=== PATIENT | male | born 2000 | race Caucasian/White ===

== ENCOUNTER 2021-08-23 20:27 | Emergency (ER) | payer OTHER ==
--- OUTSIDE RECORDS SUMMARY | 2021-08-23 20:29 | XMS REPORT | Continuity of Care Document ---
:2000 Author Organization [facility] t Address [address] [place] [address] Care Team Providers Name Role Phone Young_J Attending Clinician Unavailable Young_J Admitting Clinician Unavailable Payers Payer Name Policy Type Policy Number Effective Date Expiration Date S shobha R (PPO) [id number] 2018 00:00:00 Problems This patient has no known problems. Allergies, Adverse Reactions, Alerts This patient has no known allergies or adverse reactions. Medications This patient has no known medications. Procedures This patient has no known procedures. Encounters Start End Encounter Admission Attending Care Care Encounter Source Date/Time Date/Time Type Type Clinicians Facility Department ID 2021-04-10 2021-04-10 Outpatient [facility] [id number] [place] 03:33:00 03:33:00 [facility] 2021-03-06 2021-03-06 Outpatient [facility] [id number] [place] 04:14:00 04:14:00 [facility] 2021-01-30 2021-01-30 Outpatient [facility] [id number] [place] 03:33:00 03:33:00 110[facility] 2021-01-11 2021-01-11 Outpatient [facility]J [facility] [id number] [place] 10:53:00 10:53:00 1018 [facility] Results This patient has no known results.
[2021-08-23] MEDS ORDERED: dexAMETHasone 10 MG/ML VIAL ONE (22:09)
[2021-08-23] MEDS ORDERED: hydrOXYzine HCL 25 MG TAB ONE (22:09)
--- NOTE | 2021-08-23 22:38 | ER ---
Nurse's Notes [facility] Name: Chris Barker Age: 20 yrs Sex: Male : 2000 Arrival Date: 08/23/2021 Time: 20:31 Bed 10 Private MD: Diagnosis: Rash and other nonspecific skin eruption Presentation: 08/23 20:49 Chief complaint: Patient states: I got sunburned on Monday, the sunburn is getting jb4 better but now I am itching on my torso. This has happened before. Coronavirus screen: At this time, the client does not indicate any symptoms associated with coronavirus-19. Ebola Screen: No symptoms or risks identified at this time. Initial Sepsis Screen: Does the patient meet any 2 criteria? No. Patient's initial sepsis screen is negative. Does the patient have a suspected source of infection? No. Patient's initial sepsis screen is negative. Risk Assessment: Do you want to hurt yourself or someone else? Patient reports no desire to harm self or others. Onset of symptoms was August 23, 2021. Transition of care: patient was not received from another setting of care. 20:49 Method Of Arrival: Ambulatory jb4 20:49 Acuity: DAX 5 jb4 Historical: - Allergies: 20:51 No Known Allergies; jb4 - Home Meds: 20:51 trilogy [Active]; pro-air [Active]; jb4 - PMHx: 20:51 Asthma; jb4 - PSHx: 20:51 None; jb4 - Immunization history:: Adult Immunizations up to date. - Social history:: Smoking status: Patient/guardian denies using tobacco, Patient uses alcohol, occasionally. Patient/guardian denies using street drugs. Screenin:55 Abuse screen: Denies threats or abuse. Nutritional screening: No deficits noted. jb4 Tuberculosis screening: No symptoms or risk factors identified. Fall Risk None identified. Assessment: 20:55 General: Appears in no apparent distress. uncomfortable, Behavior is calm, cooperative, jb4 appropriate for age. Pain: Complains of pain in chest Pain does not radiate. Pain currently is 7 out of 10 on a pain scale. Neuro: Level of Consciousness is awake, alert, obeys commands, Oriented to person, place, time, situation. Cardiovascular: Patient's skin is warm and dry. Respiratory: Airway is patent Respiratory effort is even, unlabored, Respiratory pattern is regular, symmetrical. GI: No signs and/or symptoms were reported involving the gastrointestinal system. : No signs and/or symptoms were reported regarding the genitourinary system. EENT: No signs and/or symptoms were reported regarding the EENT system. Derm: Skin is intact, Skin is pink, warm \T\ dry. Rash noted that is itchy, on chest and abdomen. Vital Signs: 20:49 BP 119 / 63; Pulse 87; Resp 16; Temp 99.0(TE); Pulse Ox 99% on R/A; Weight 86.18 kg jb4 (R); Height 6 ft. 0 in. (182.88 cm) (R); Pain 7/10; 20:49 Body Mass Index 25.77 (86.18 kg, 182.88 cm) jb4 ED Course: 20:31 Patient arrived in ED. ja2 20:51 Triage completed. jb4 20:51 Arm band placed on right wrist. 4 20:53 Kirk Herrera PA is PHCP. [facility] 20:53 Chicho Dallas MD is Attending Physician. [facility] 20:55 Patient has correct armband on for positive identification. Bed in low position. Call jb4 light in reach. Side rails up X 1. 22:35 No provider procedures requiring assistance completed. Patient did not have IV access jb4 during this emergency room visit. Administered Medications: 22:05 Drug: Decadron (dexamethasone) 10 mg Route: IM; Site: right gluteus; lp1 22:40 Follow up: Response: No adverse reaction lp1 22:05 Drug: hydrOXYzine 50 mg Route: PO; lp1 22:40 Follow up: Response: No adverse reaction lp1 Medication: 08/24 03:36 VIS not applicable for this client. jb4 Outcome: 08/23 22:37 Discharge ordered by . karen 22:40 Discharged to home ambulatory, with significant other. lp1 22:40 Condition: stable 22:40 Discharge instructions given to patient, Instructed on discharge instructions, follow up and referral plans. medication usage, Demonstrated understanding of instructions, follow-up care, medications, Prescriptions given X 3. 22:41 Patient left the ED. lp1 Signatures: MickaKirk gillis PA PA jmm Pena, Laura, RN RN lp1 Anand Glover RN RN jb4 Brenda Paulson ja2 Corrections: (The following items were deleted from the chart) 08/24 02:39 03:36 General: Appears in no apparent distress. uncomfortable, Behavior is calm, jb4 cooperative, appropriate for age, jb4 :39 03:36 Pain: Complains of pain in chest Pain does not radiate. Pain currently is 7 out jb4 of 10 on a pain scale. jb4 03:36 Neuro: Level of Consciousness is awake, alert, obeys commands, Oriented to jb4 person, place, time, situation, 4 03:36 Cardiovascular: Patient's skin is warm and dry. [place] [id number] 03:36 Respiratory: Airway is patent Respiratory effort is even, unlabored, Respiratory jb4 pattern is regular, symmetrical, 4 : 03:36 GI: No signs and/or symptoms were reported involving the gastrointestinal system. [place] [id number] 03:36 : No signs and/or symptoms were reported regarding the [facility]ourinary system. [facility] EENT: No signs and/or symptoms were reported regarding the EENT system. [place] [id number] :39 03:36 Derm: Skin is intact, Skin is pink, warm \T\ dry. Rash noted that is itchy, on jb4 chest and abdomen [facility] 39 03:36 Abuse screen: Denies threats or abuse. [place] [id number] 03:36 Nutritional screening: No deficits noted. [place] [id number] 03:36 Tuberculosis screening: No symptoms or risk factors identified. [place] [id number] :39 03:36 Fall Risk None identified. [place] [id number]
--- NOTE | 2021-08-23 22:38 | EDPHYS ---
Physician Documentation [facility] Name: Chris Barker Age: 20 yrs Sex: Male : 2000 Arrival Date: 08/23/2021 Time: 20:31 Bed 10 Private MD: ED Physician Chicho Dallas HPI: 08/23 21:28 This 20 yrs old Male presents to ER via Ambulatory with complaints of Skin Problem. jmm 21:28 The patient's rash thought to be caused by Dermatitis. Onset: The symptoms/episode jmm began/occurred gradually, 1 day(s) ago. Associated signs and symptoms:. 20-year-old male with no chronic medical conditions presents emerged department with complaints of pruritus secondary to sunburn which occurred yesterday. Patient states having similar episode previous sunburns.. Historical: - Allergies: 20:51 No Known Allergies; jb4 - Home Meds: 20:51 trilogy [Active]; pro-air [Active]; jb4 - PMHx: 20:51 Asthma; jb4 - PSHx: 20:51 None; jb4 - Immunization history:: Adult Immunizations up to date. - Social history:: Smoking status: Patient/guardian denies using tobacco, Patient uses alcohol, occasionally. Patient/guardian denies using street drugs. ROS: 21:28 Constitutional: Negative for fever, chills, and weight loss, Cardiovascular: Negative jmm for chest pain, palpitations, and edema, Respiratory: Negative for shortness of breath, cough, wheezing, and pleuritic chest pain. 21:28 Skin: Positive for rash. 21:28 All other systems are negative. Exam: 21:28 Constitutional: This is a well developed, well nourished patient who is awake, alert, jmm and in no acute distress. Head/Face: atraumatic. Eyes: EOMI, no conjunctival erythema appreciated ENT: Moist Mucus Membranes Neck: Trachea midline, Supple Chest/axilla: Normal chest wall appearance and motion. Cardiovascular: Regular rate and rhythm. No edema appreciated Respiratory: Normal respirations, no respiratory distress appreciated Abdomen/GI: Non distended, soft Back: Normal ROM 21:28 Skin: erythema noted to the chest. 21:28 Neuro: Orientation: is normal, Mentation: is normal, Memory: is normal. 21:28 Psych: Behavior/mood is pleasant, cooperative. Vital Signs: 20:49 BP 119 / 63; Pulse 87; Resp 16; Temp 99.0(TE); Pulse Ox 99% on R/A; Weight 86.18 kg jb4 (R); Height 6 ft. 0 in. (182.88 cm) (R); Pain 7/10; 20:49 Body Mass Index 25.77 (86.18 kg, 182.88 cm) jb4 MDM: 21:28 Patient medically screened. [facility] 22:35 Data reviewed: vital signs, nurses notes. Counseling: I had a detailed discussion with [facility] the patient and/or guardian regarding: the historical points, exam findings, and any diagnostic results supporting the discharge/admit diagnosis, the need for outpatient follow up, to return to the emergency department if symptoms worsen or persist or if there are any questions or concerns that arise at home. ED course: Patient is alert and non toxic in appearance in the ED. No signs of seps. Patient advised to follow up with pcp and otherwise given strict return precautions. Patient understood and agrees with the plan of care. . Administered Medications: 22:05 Drug: Decadron (dexamethasone) 10 mg Route: IM; Site: right gluteus; lp1 22:40 Follow up: Response: No adverse reaction lp1 22:05 Drug: hydrOXYzine 50 mg Route: PO; lp1 22:40 Follow up: Response: No adverse reaction lp1 Disposition Summary: 08/23/21 22:37 Discharge Ordered Location: Home [facility] Condition: Stable [facility] Diagnosis - Rash and other nonspecific skin eruption [facility] Followup: [facility] - With: Private Physician - When: 2 - 3 days - Reason: Recheck today's complaints, Continuance of care, Re-evaluation by your physician Discharge Instructions: - Discharge Summary Sheet [facility] - Rash, Adult [facility] Forms: - Medication Reconciliation Form [facility] - Thank You Letter [facility] - Antibiotic Education [facility] - Prescription Opioid Use [facility] Prescriptions: - Hydroxyzine HCl 50 mg Oral Tablet - take 1 tablet by ORAL route every 8 hours As needed; 20 tablet; Refills: 0, [facility] Product Selection Permitted - Prednisone 20 mg Oral Tablet - take 3 tablets by ORAL route once daily for 5 days; 15 tablet; Refills: 0, [facility] Product Selection Permitted - Doxycycline Hyclate 100 mg Oral Tablet - take 1 tablet by ORAL route every 12 hours; 20 tablet; Refills: 0, Product tushar Selection Permitted Addendum: 08/25/2021 07:19 Co-signature as Attending Physician, Chicho Dallas MD. [facility] Signatures: Kirk Herrera PA PA jmm Pena, Laura, RN RN lp1 Anand Glover RN RN jb4 Chicho Dallas MD MD [id number]
[2021-08-23 23:16] VITALS: BP 119/63; TEMP 99; O2SAT 99
== END 2021-08-23 22:41 | disposition home or self-care (01) ==
LOC: ER 20:27
DX: R21 Rash and other nonspecific skin eruption (principal); J45.909 Unspecified asthma, uncomplicated
CPT/HCPCS: 96372; 99283; J1100